=== PATIENT | female | born 1955 | race Caucasian/White ===

== ENCOUNTER 2016-06-07 12:46 | Observation (INO) | payer MEDICARE, OTHER ==
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
--- NOTE | ~2016-06-07 | CT16 ---
[facility] A Service of [facility] RADIOLOGY TEXT RESULTS PATIENT: DEANDRA BOB LOCATION: [facility] [address]-81 : [birth year] UNIT #: [id number] AGE: [address]: James Reese MD SEX: F ORDER DR: [id number] [facility] [address]. [place], [place] [address] [id number] I MR#: [id number] Acc #: [id number] NAME: DEANDRA BOB : 1955 SEX: F STUDY DATE/TIME: 06/07/2016 15:39 UNIT: [facility] ROOM: 83476 STUDY DESCRIPTION: CT Angio Chest for PE Attending Physician: James Reese M.D. Ordering Physician: Abraham Candelaria M.D. Primary Care Physician: Sulema Clark M.D. MEDICAL IMAGING REPORT This report is preliminary unless electronic signature is present EXAM CT chest with pulmonary embolus protocol INDICATION Chest pain beginning today. TECHNIQUE The patient was given 100 mL of Isovue-370 and spiral imaging was performed through the chest. 3D reconstructions of the pulmonary arteries were generated. This CT exam was performed with one or more of the following radiation dose reduction techniques: automatic exposure control, adjustment of mA and/or kV according to patient size, and iterative reconstruction. FINDINGS There is minimal right base atelectasis. Otherwise, the lungs are clear. There is adequate opacification of the pulmonary arteries and there is no CT evidence of pulmonary embolus. The aorta is normal in size. There is no dissection. The thyroid gland is normal. There is no mediastinal or hilar adenopathy. The visualized portions of the upper abdomen are normal. IMPRESSION 1. Mild right base atelectasis. 2. No CT evidence of pulmonary embolus or area of dissection. 3. Otherwise, normal. Dictated by... Sandip Jean M.D. THIS IS AN ELECTRONICALLY VERIFIED REPORT Sandip Jean M.D. at 06/08/2016 11:20 AM FEL/aa [facility] A Service of [facility] RADIOLOGY TEXT RESULTS PATIENT: DEANDRA BOB LOCATION: [facility] [id number] : [birth year] UNIT #: [id number] AGE: [address]: James Reese MD SEX: F ORDER DR: TD: 06/08/2016 09:48 JOB #: [id number] MEDICAL IMAGING REPORT COPY
--- NOTE | ~2016-06-07 | CT2 ---
[facility] A Service of [facility] RADIOLOGY TEXT RESULTS PATIENT: DEANDRA BOB LOCATION: [facility] 549-01 : [birth year] UNIT #: [id number] AGE: [address]: James Reese MD SEX: F ORDER DR: [id number] [facility] [address]. [place], [place] [address] [id number] I MR#: [id number] Acc #: [id number] NAME: DEANDRA BOB : 1955 SEX: F STUDY DATE/TIME: 06/07/2016 15:06 UNIT: [facility] ROOM: 10266 STUDY DESCRIPTION: CT Abd and Pelv W Cont Attending Physician: James Reese M.D. Ordering Physician: Abraham Candelaria M.D. Primary Care Physician: Sulema Clark M.D. MEDICAL IMAGING REPORT This report is preliminary unless electronic signature is present EXAM CT abdomen and pelvis with contrast INDICATION Chest pain beginning today with vomiting. PROCEDURE Contrast-enhanced CT of the abdomen and pelvis. 100 mL of Isovue-370. COMPARISON None TECHNIQUE This CT exam was performed with one or more of the following radiation dose reduction techniques: automatic exposure control, adjustment of mA and/or kV according to patient size, and iterative reconstruction. FINDINGS Refer to the separately dictated chest CT for thoracic findings. ABDOMEN WITH CONTRAST: The liver, pancreas, gallbladder and adrenal glands are unremarkable. Small nonobstructing calculus left kidney. Previous splenectomy. The bowel loops are nondilated. Extensive sigmoid diverticulosis. There is generalized thickening throughout the sigmoid colon. No definitive evidence for active inflammation. There is a fat-containing hernia just to the left of midline that measures 3.8 cm and has a neck of 1.8 cm. It is located in the mid abdomen. PELVIS WITH CONTRAST: No pelvic mass or fluid. No aggressive appearing bone lesion. There is 8.0 mm anterolisthesis of L4 on L5. IMPRESSION 1. No clearly acute finding in the abdomen or pelvis. [facility] A Service [facility] RADIOLOGY TEXT RESULTS PATIENT: DEANDRA BOB LOCATION: [facility] 549-01 : 55 UNIT #: [id number] AGE: [address]: James Reese MD SEX: F ORDER DR: 2. Fairly extensive left-sided colonic diverticulosis with mild generalized thickening in the sigmoid colon. It is favored to represent changes of chronic diverticulitis. It is difficult to exclude a mild acute component. Correlate with any current symptoms. 3. Fat-containing mid abdominal hernia as above. 4. Anterolisthesis of L4 on L5. Dictated by... Jem Garcia M.D. THIS IS AN ELECTRONICALLY VERIFIED REPORT Jem Garcia M.D. at 06/11/2016 7:10 AM Javi TD: 06/08/2016 09:06 JOB #: [id number] MEDICAL IMAGING REPORT COPY
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
--- NOTE | ~2016-06-07 | EKG ---
PATIENT: DEANDRA BOB UNIT #: [id number] Ventricular Rate: 68 BPM Atrial Rate: 68 BPM P-R Interval: 134 ms QRS Duration: 86 ms Q-T Interval: 404 ms QTC Calculation(Bezet): 429 ms P Letts: 47 degrees Calculated R Letts: -42 degrees Calculated T Letts: 25 degrees Diagnosis Line: Normal sinus rhythm with sinus arrhythmia Diagnosis Line: Left axis deviation Diagnosis Line: Otherwise normal ECG Diagnosis Line: No previous ECGs available Diagnosis Line: Confirmed by ILNDSEY CONNOLLY MD ([id number]) on 06/07/2016 Diagnosis Line: 4:47:25 PM INTERPRETING MD: MOHSEN JONES
--- NOTE | ~2016-06-07 | DS ---
Unit #: [id number] #: [id number] Patient: DEANDRA BOB [id number] [address] [place], [place] [address] [id number] I MR#: [id number] NAME: DEANDRA BOB ROOM: 549 Age: 60 Sex: F Admission Date: 06/07/2016 : 1955 Discharge Date: 06/09/2016 Attending Physician: James Reese M.D. Primary Care Physician: Sulema Clark M.D. DISCHARGE SUMMARY DIAGNOSES ON ADMISSION 1. Chest pain. 2. Left pleural effusion. DIAGNOSES ON DISCHARGE 1. Atypical chest pain, myocardial infarction ruled out. 2. Acute bronchitis. 3. Seizure disorder. 4. Gastroesophageal reflux disease. 5. Chronic obstructive pulmonary disease. 6. Fibromyalgia. CONSULTATIONS Dr. Jvaier in cardiac consultation. DIAGNOSTIC STUDIES LABS: The patient's BNP was 163. Troponin was less than 0.03. Blood cultures were negative. Urinalysis was also negative. IMAGING: CT scan of the chest did not reveal any evidence of PE or pneumonia. CT scan of the abdomen and pelvis revealed left-sided diverticulosis. It was difficult to exclude a mild acute component, but the patient is not having any symptoms of abdominal pain. HOSPITAL COURSE This 60-year-old female was admitted to the hospital with chest pain. Details are as per admission H and P. The patient was seen by Dr. Javier in consultation. Dr. Javier recommended that the patient can follow up on an outpatient basis with him for further workup. The patient had a stress echo done in August 2014, which was normal. Questionable pneumonia. The patient had a CT scan of the chest done, which did not reveal any evidence of pneumonia. There was some right atelectasis present. The patient was treated for acute bronchitis and is feeling much better. Today, the patient is comfortable and is not in any acute distress. Wants to go home. DISCHARGE MEDICATIONS 1. Albuterol MDI 2 puffs q.4 hours p.r.n. Unit #: [id number] #: [id number] Patient: DEANDRA BOB 2. Tylenol 650 mg p.o. q.4 hours p.r.n. pain. 3. Lyrica 300 mg p.o. b.i.d. 4. Lexapro 10 mg p.o. daily. 5. Bentyl 10 mg q.6 p.r.n. 6. BuSpar 15 mg q.i.d. 7. Lipitor 20 mg q.h.s. 8. The patient was advised to continue her home vitamins and medications. 9. Protonix 40 mg p.o. daily. 10. Enteric-coated aspirin 81 mg p.o. daily. 11. Doxycycline 100 mg p.o. b.i.d. for 5 days. 12. Vitamin D 50,000 units weekly, which is a home medicine. FOLLOW-UP 1. The patient is advised to follow up with primary care physician in 1 week and have a CBC and BMP done. 2. The patient is advised to call primary care physician or go to the ER if her condition changes. 3. The patient is advised to follow up with Dr. Javier as recommended. Dictated by... Noman Benitez TD: 06/09/2016 13:09 JOB #: [id number] DISCHARGE SUMMARY X James Reese MD DISCHARGE SUMMARY
--- NOTE | ~2016-06-07 | CR72 ---
[facility] A Service of [facility] RADIOLOGY TEXT RESULTS PATIENT: DEANDRA BOB LOCATION: [facility] : 55 UNIT #: [id number] AGE: [address]: Vance Oreilly MD SEX: F ORDER DR: [id number] [facility] [address] [place], [place] [address] [id number] MR#: [id number] Acc #: [id number] NAME: DEANDRA BOB : 1955 SEX: F STUDY DATE/TIME: 06/07/2016 12:17 UNIT: [facility] ROOM: STUDY DESCRIPTION: CR Chest Single View Portable Attending Physician: Vance Oreilly M.D. Ordering Physician: Abraham Candelaria M.D. Primary Care Physician: Sulema Clark M.D. MEDICAL IMAGING REPORT This report is preliminary unless electronic signature is present EXAM Portable chest radiograph INDICATION Chest pain that started this morning at 8:30 a.m. FINDINGS Cardiomegaly is identified. Patient appears to have some vascular congestion. There is a left pleural effusion and probably also a trace right pleural effusion as well. No pneumothorax is seen. There is bibasilar atelectasis and potentially also a left basilar infiltrate. Advanced degenerative changes are noted in the right shoulder. Dictated by... Marianne Talavera M.D. THIS IS AN ELECTRONICALLY VERIFIED REPORT Marianne Talavera M.D. at 06/07/2016 5:25 PM AFF/aa TD: 06/07/2016 15:45 JOB #: [id number] MEDICAL IMAGING REPORT COPY
[2016-06-07 12:42] LABS: POC - CKMB 1.1 ng/mL (0.0-7.9); POC - TROPONIN <0.05 ng/mL (<=0.05)
[~2016-06-07 12:46] MED LIST: ACETAMINOPHEN PO; ALBUTEROL17 GM INH; ATIVAN PO; B COMPLEX1 CA1 PO; CYMBALTA PO; EXCEDRIN GELTAB1 TA1 PO; KLONOPIN2 MG PO; MULTI-VIT/MIN P1 TAB PO; NEURONTIN300 MG PO; OMEPRAZOLE40 MG PO; PAXIL CR PO; PRENATAL1 TA1 PO; REGLAN PO; ST JOHNS WART PO; TRAZODONE PO; WELLBUTRIN XL PO
[2016-06-07 13:07] LABS: BASOPHIL# 0.1 X10e3 (0-0.3); BASOPHIL% 0.7 % (0-2.5); EOSINOPHIL% 0.3 % (0.0-7.0); HEMOGLOBIN 13.7 gm/dL (12.0-16.0); LYMPHOCYTE# 3.2 X10e3 (1.0-3.5); LYMPHOCYTE% 19.5 % (17.0-45.0); MEAN CELL VOLUME 92.2 FL (83-96); MEAN CORPUSCULAR HEMOGLOBIN 30.2 PG (28-34); MEAN CORPUSCULAR HGB CONC 32.7 g/dL (30-36); MEAN PLATELET VOLUME 8.6 FL (6.5-11.5); MONOCYTE# 0.5 X10e3 (0-1.0); MONOCYTE% 2.8 % (3.0-12.0); NEUTROPHIL# 12.7 X10e3 (1.5-7.1); NEUTROPHIL% 76.7 % (40-75); PLATELET COUNT 458 X10e3 (140-420); RED BLOOD COUNT 4.55 X10e (3.90-5.30); WHITE BLOOD COUNT 16.5 X10e3 (4.0-10.5)
[2016-06-07 13:08] LABS: DIFF IND YES
[2016-06-07 13:22] LABS: PROTHROMBIN TIME (PATIENT) 10.4 SECONDS (9.6-11.5)
[2016-06-07 13:30] LABS: ANISOCYTOSIS SL; PLATELET ESTIMATE INCREASED (NORMAL)
[2016-06-07 13:52] LABS: ALBUMIN SERUM 3.9 g/dL (3.5-5.0); ALKALINE PHOSPHATASE 105 U/L (32-92); ALT (SGPT) 20 U/L (10-40); AST (SGOT) 19 U/L (10-42); BILIRUBIN, DIRECT 0.1 mg/dL (0.0-0.2); BILIRUBIN,INDIRECT 0.4 mg/dL (0.0-0.9); BILIRUBIN,TOTAL 0.5 mg/dL (0.2-2.0); BLOOD UREA NITROGEN 12 mg/dL (9-23); CALCIUM SERUM 9.1 mg/dL (8.4-10.2); CARBON DIOXIDE 27 mmol/L (22-31); CHLORIDE 106 mmol/L (100-111); CREATININE SERUM 0.5 mg/dL (0.6-1.4); GLOM FILT RATE Estimated ABOVE60 mL/min (>60); GLUCOSE FASTING 113 mg/dL (70-110); POTASSIUM 3.8 mmol/L (3.5-5.1); SODIUM 142 mmol/L (135-145)
[2016-06-07 15:32] LABS: POC - CKMB 2.7 ng/mL (0.0-7.9); POC - TROPONIN <0.05 ng/mL (<=0.05)
[2016-06-07] MEDS ORDERED: LYRICA25 MG PO (18:54)
[2016-06-07] MEDS ORDERED: BUSPIRONE HCL10 MG PO (18:54)
[2016-06-07] MEDS ORDERED: PROTONIX20 MG PO (18:55)
[2016-06-07 19:32] LABS: CHOLESTEROL 186 mg/dL (0-200); HDL CHOLESTEROL 36 mg/dL (35-95); LDL/HDL RATIO 4 RATIO (0-4); TRIGLYCERIDES 54 mg/dL (10-160)
[2016-06-07 19:34] LABS: LDL CHOLESTEROL 139 mg/dL ([, -130])
[2016-06-07 20:39] LABS: URINE SOURCE CLEAN CATCH
[2016-06-07 20:46] LABS: URINE APPEARANCE CLEAR; URINE BILIRUBIN NEG (NEG); URINE BLOOD NEG (NEG); URINE COLOR YELLOW; URINE GLUCOSE NEG (NEG); URINE KETONE 1+ (NEG); URINE LEUKOCYTE ESTERASE NEG (NEG); URINE NITRATE NEG (NEG); URINE PH 6.5 (5-8); URINE PROTEIN NEG (NEG); URINE SPECIFIC GRAVITY 1.067 (1.003-1.035); URINE UROBILINOGEN 0.2 MG/DL (NEG)
[2016-06-07 20:50] LABS: CULTURE INDICATED? NO
[2016-06-07 23:27] LABS: CK TOTAL 45 IU/L (26-140)
[2016-06-08 04:19] LABS: BASOPHIL# 0.1 X10e3 (0-0.3); BASOPHIL% 0.8 % (0-2.5); EOSINOPHIL# 0.1 X10e3 (0-0.7); EOSINOPHIL% 0.5 % (0.0-7.0); HEMATOCRIT 38.4 % (35.0-45.0); HEMOGLOBIN 12.6 gm/dL (12.0-16.0); LYMPHOCYTE# 5.5 X10e3 (1.0-3.5); LYMPHOCYTE% 40.1 % (17.0-45.0); MEAN CELL VOLUME 92.1 FL (83-96); MEAN CORPUSCULAR HEMOGLOBIN 30.2 PG (28-34); MEAN CORPUSCULAR HGB CONC 32.7 g/dL (30-36); MEAN PLATELET VOLUME 7.4 FL (6.5-11.5); MONOCYTE% 7.3 % (3.0-12.0); NEUTROPHIL# 7.1 X10e3 (1.5-7.1); NEUTROPHIL% 51.3 % (40-75); PLATELET COUNT 402 X10e3 (140-420); RED BLOOD COUNT 4.17 X10e (3.90-5.30); WHITE BLOOD COUNT 13.8 X10e3 (4.0-10.5)
[2016-06-08 04:22] LABS: DIFF IND NO
[2016-06-08 04:41] LABS: ALBUMIN SERUM 3.2 g/dL (3.5-5.0); ALKALINE PHOSPHATASE 84 U/L (32-92); ALT (SGPT) 15 U/L (10-40); AST (SGOT) 16 U/L (10-42); BILIRUBIN,TOTAL 0.6 mg/dL (0.2-2.0); BLOOD UREA NITROGEN 13 mg/dL (9-23); BUN/CREATININE RATIO 18.57; CALCIUM SERUM 8.5 mg/dL (8.4-10.2); CARBON DIOXIDE 29 mmol/L (22-31); CHLORIDE 104 mmol/L (100-111); CREATININE SERUM 0.7 mg/dL (0.6-1.4); GLOM FILT RATE Estimated ABOVE60 mL/min (>60); GLUCOSE FASTING 94 mg/dL (70-110); POTASSIUM 3.4 mmol/L (3.5-5.1); PROTEIN TOTAL SERUM 6.6 g/dL (6.0-8.3); SODIUM 138 mmol/L (135-145)
[2016-06-08 04:53] LABS: CK TOTAL 35 IU/L (26-140)
[2016-06-08] MEDS ORDERED: MULTI-VITAMIN1 EAC1 PO (10:08)
[2016-06-08] MEDS ORDERED: EXCEDRIN MIGRAI1 TA2 PO (10:09)
[2016-06-08] MEDS ORDERED: ST. JOHN'S WOR150 M1 PO (10:11)
[2016-06-08] MEDS ORDERED: B COMPLEX1 TAB PO (10:12)
[2016-06-08] MEDS ORDERED: PROTONIX PO (10:14)
[2016-06-08] MEDS ORDERED: BUSPAR15 M1 PO (10:14)
[2016-06-08] MEDS ORDERED: LYRICA300 MG PO (10:14)
[2016-06-08] MEDS ORDERED: LEXAPRO PO (10:15)
[2016-06-08] MEDS ORDERED: AMITRIPTYLINE H50 MG PO (10:15)
[2016-06-08] MEDS ORDERED: BENTYL10 MG PO (10:15)
[2016-06-08] MEDS ORDERED: ALBUTEROL20 ml INH (10:55)
[2016-06-08] MEDS ORDERED: VITAMIN D50000 UNIT PO (10:56)
[2016-06-08 11:43] LABS: FREE T3 3.1 pg/mL (2.5-3.9)
[2016-06-08 11:44] LABS: FREE THYROXIN (T4) 1.09 ng/dL (0.58-1.64)
[2016-06-09 05:30] LABS: HEMATOCRIT 41.3 % (35.0-45.0); HEMOGLOBIN 13.3 gm/dL (12.0-16.0); MEAN CORPUSCULAR HGB CONC 32.2 g/dL (30-36); RED BLOOD COUNT 4.44 X10e (3.90-5.30)
[2016-06-09 06:47] LABS: BLOOD UREA NITROGEN 13 mg/dL (9-23); CALCIUM SERUM 9.1 mg/dL (8.4-10.2); CARBON DIOXIDE 28 mmol/L (22-31); CHLORIDE 104 mmol/L (100-111); CREATININE SERUM 0.5 mg/dL (0.6-1.4); GLOM FILT RATE Estimated ABOVE60 mL/min (>60); GLUCOSE FASTING 85 mg/dL (70-110); MAGNESIUM 1.9 mg/dL (1.6-3.0); POTASSIUM 4.3 mmol/L (3.5-5.1); SODIUM 139 mmol/L (135-145)
[2016-06-09] MEDS ORDERED: VIBRAMYCIN100 M1 PO (13:56)
== END 2016-06-09 14:30 | disposition home or self-care (01) ==
LOC: CED 12:46 → CEDOF 18:10 → C5B 06-08 19:46
PROVIDERS: Emergency Medicine; Family Medicine; Internal Medicine Cardiovascular Disease
DX: R07.89 Other chest pain (principal); J44.0 Chronic obstructive pulmonary disease with (acute) lower respiratory infection; J20.9 Acute bronchitis, unspecified; J44.1 Chronic obstructive pulmonary disease with (acute) exacerbation; J90 Pleural effusion, not elsewhere classified; G40.909 Epilepsy, unspecified, not intractable, without status epilepticus; K21.9 Gastro-esophageal reflux disease without esophagitis; M79.7 Fibromyalgia; E87.6 Hypokalemia; J98.11 Atelectasis; Z90.81 Acquired absence of spleen; F17.200 Nicotine dependence, unspecified, uncomplicated; Z80.49 Family history of malignant neoplasm of other genital organs; E78.5 Hyperlipidemia, unspecified; R94.6 Abnormal results of thyroid function studies; F41.8 Other specified anxiety disorders
CPT/HCPCS: 36415; 71010; 71275; 74177; 80048; 80053; 80061; 80076; 81003; 82550; 82553; 83690; 83735; 83880; 84439; 84443; 84481; 84484; 85025; 85027; 85610; 87040; 93005; 94640; 94760; 96374; 96375; 99285; G0378; J2270; J2405; J2550; Q9967

== ENCOUNTER 2016-08-09 13:06 | Emergency (ER) | payer MEDICARE, OTHER ==
--- NOTE | ~2016-08-09 | CR72 ---
[facility] A Service of [facility] RADIOLOGY TEXT RESULTS PATIENT: DEANDRA BOB LOCATION: SED : 55 UNIT #: [id number] AGE: [address]: Andrew Pederson MD SEX: F ORDER DR: [id number] [place] [id number] E MR#: [id number] Acc #: [id number] NAME: DEANDRA BOB : 1955 SEX: F STUDY DATE/TIME: UNIT: SED ROOM: STUDY DESCRIPTION: CR Chest Single View Portable Attending Physician: Andrew Pederson M.D. Referring Physician: Andrew Pederson M.D. Ordering Physician: Andrew Pederson M.D. Primary Care Physician: Sulema Clark M.D. MEDICAL IMAGING REPORT This report is preliminary unless electronic signature is present. EXAM Chest portable 08/09/2016 1331 hours HISTORY 60-year-old woman with chest pain and left-sided abdominal pain since 07/06/2016. Patient fell yesterday. COMPARISON Chest CT 06/07/2016 FINDINGS Portable upright chest demonstrates normal heart size and a mildly tortuous aorta. The upper lungs are clear. There is patchy density right greater than left lung base. Atelectasis is favored over pneumonia. Right basilar changes appear similar to CT 06/07/2016. IMPRESSION Patchy to linear right greater than left basilar densities likely atelectasis. The basilar findings are similar to the CT chest of 06/07/2016. No acute pulmonary or pleural findings. Dictated by... Chata Mercer M.D. THIS IS AN ELECTRONICALLY VERIFIED REPORT Chata Mercer M.D. at 08/09/2016 5:58 PM SMM/to TD: 08/09/2016 16:26 JOB #: [id number] MEDICAL IMAGING REPORT [facility] A Service of [facility] RADIOLOGY TEXT RESULTS PATIENT: DEANDRA BOB LOCATION: SED : 55 UNIT #: [id number] AGE: [address]: Andrew Pederson MD SEX: F ORDER DR: Page 1 of 1
--- NOTE | ~2016-08-09 | CT71 ---
[facility] A Service [facility] RADIOLOGY TEXT RESULTS PATIENT: DEANDRA BOB LOCATION: SED : 55 UNIT #: [id number] AGE: [address]: Andrew Pederson MD SEX: F ORDER DR: [id number] [place] [id number] E MR#: [id number] Acc #: [id number] NAME: DEANDRA BOB : 1955 SEX: F STUDY DATE/TIME: 08/09/2016 13:19 UNIT: SED ROOM: STUDY DESCRIPTION: CT Head Wo Contrast Attending Physician: Andrew Pederson M.D. Referring Physician: Andrew Pederson M.D. Ordering Physician: Andrew Pederson M.D. Primary Care Physician: Sulema Clark M.D. MEDICAL IMAGING REPORT This report is preliminary unless electronic signature is present. EXAM CT head 08/09/2016 HISTORY Left abdomen pain, chest pain since 07/06/2016, fell yesterday, involuntary leg movements. Dizziness. TECHNIQUE CT head performed skull base through vertex without intravenous contrast. This CT exam was performed with one or more of the following radiation dose reduction techniques: automatic exposure control, adjustment of mA and/or kV according to patient size, and iterative reconstruction. COMPARISON STUDIES No prior CTs of head for comparison. FINDINGS The brain stem is unremarkable. Cerebellum and cerebral hemispheres show normal jones matter-white matter differentiation. Some images degraded by motion artifact. No hemorrhage. No evidence of acute cortical ischemia. Midline structures are nondisplaced. The basal ganglia are intact. The ventricles, cisterns and sulci are normal in size and contour. No intra or extraaxial mass effect or abnormal intracranial fluid collection. There are cavernous carotid arterial calcifications. The intraorbital soft tissues are unremarkable. The appearance of left medial orbital wall suggests old healed left medial orbital wall fracture. No acute bony abnormality. No acute sinus disease. IMPRESSION 1. No acute abnormality seen in brain. If patient has ongoing neurologic symptoms, consider followup imaging. [facility] A Service [facility] RADIOLOGY TEXT RESULTS PATIENT: DEANDRA BOB LOCATION: [facility] : 55 UNIT #: [id number] AGE: [address]: Andrew Pederson MD SEX: F ORDER DR: 2. Cavernous carotid arterial calcifications. 3. No acute bony abnormality. Configuration of medial orbital wall left orbit suggests old healed left medial orbital wall fracture. Dictated by... Cyrus Ascencio M.D. THIS IS AN ELECTRONICALLY VERIFIED REPORT Cyrus Ascencio M.D. at 08/09/2016 6:48 PM Vish TD: 08/09/2016 16:23 JOB #: [id number] MEDICAL IMAGING REPORT Page 1 of 1
[2016-08-09 13:04] LABS: URINE SOURCE CLEAN CATCH
[~2016-08-09 13:06] MED LIST changes: +ALBUTEROL20 ml INH; +AMITRIPTYLINE H50 MG PO; +B COMPLEX1 TAB PO; +BENTYL10 MG PO; +BUSPAR15 M1 PO; +BUSPIRONE HCL10 MG PO; +EXCEDRIN MIGRAI1 TA2 PO; +LEXAPRO PO; +LYRICA25 MG PO; +LYRICA300 MG PO; +MULTI-VITAMIN1 EAC1 PO; +PROTONIX PO; +PROTONIX20 MG PO; +ST. JOHN'S WOR150 M1 PO; +VIBRAMYCIN100 M1 PO; +VITAMIN D50000 UNIT PO
[2016-08-09 13:09] LABS: URINE APPEARANCE CLEAR; URINE BILIRUBIN NEG (NEG); URINE BLOOD TRACE-INTACT (NEG); URINE COLOR YELLOW; URINE GLUCOSE NEG (NORM); URINE KETONE NEG (NEG); URINE LEUKOCYTE ESTERASE NEG (NEG); URINE NITRATE NEG (NEG); URINE PH 5.5 (5-8); URINE PROTEIN NEG (NEG); URINE UROBILINOGEN 0.2 MG/DL (NORM)
[2016-08-09 13:13] LABS: BASOPHIL# 0.1 X10e3 (0-0.3); BASOPHIL% 0.9 % (0-2.5); EOSINOPHIL# 0.1 X10e3 (0-0.7); EOSINOPHIL% 0.8 % (0.0-7.0); HEMATOCRIT 45.9 % (35.0-45.0); HEMOGLOBIN 15.3 gm/dL (12.0-16.0); LYMPHOCYTE# 4.7 X10e3 (1.0-3.5); LYMPHOCYTE% 30.5 % (17.0-45.0); MEAN CELL VOLUME 92.8 FL (83-96); MEAN CORPUSCULAR HEMOGLOBIN 30.8 PG (28-34); MEAN CORPUSCULAR HGB CONC 33.2 g/dL (30-36); MEAN PLATELET VOLUME 8.8 FL (6.5-11.5); MICRO INDICATED? YES; MONOCYTE# 1.5 X10e3 (0-1.0); NEUTROPHIL# 8.8 X10e3 (1.5-7.1); NEUTROPHIL% 57.8 % (40-75); PLATELET COUNT 296 X10e3 (140-420); RED BLOOD COUNT 4.95 X10e (3.90-5.30); RED CELL DISTRIBUTION WIDTH 15.1 % (11.0-15.5); WHITE BLOOD COUNT 15.3 X10e3 (4.0-10.5)
[2016-08-09 13:15] LABS: DIFF IND NO
[2016-08-09 13:16] LABS: CULTURE INDICATED? YES; URINE AMORPHOUS SEDIMENT AMORP URATES; URINE BACTERIA 1+ (NEG); URINE MUCUS PRESENT; URINE SQUAMOUS EPITHELIAL CELL FEW /[HPF]
[2016-08-09 13:29] LABS: ALBUMIN SERUM 4.4 g/dL (3.5-5.0); BILIRUBIN, DIRECT 0.2 mg/dL (0.0-0.2); BILIRUBIN,INDIRECT 0.5 mg/dL (0.0-0.9); BILIRUBIN,TOTAL 0.7 mg/dL (0.2-2.0); BUN/CREATININE RATIO 12.85; CALCIUM SERUM 9.3 mg/dL (8.4-10.2); CREATININE SERUM 0.7 mg/dL (0.6-1.4); GLOM FILT RATE Estimated 94.2 mL/min (>60); POTASSIUM 3.6 mmol/L (3.5-5.1); PROTEIN TOTAL SERUM 8.7 g/dL (6.0-8.3)
== END 2016-08-09 14:46 | disposition home or self-care (01) ==
LOC: SED 13:06
PROVIDERS: Emergency Medicine
DX: N39.0 Urinary tract infection, site not specified (principal); F41.9 Anxiety disorder, unspecified; J44.9 Chronic obstructive pulmonary disease, unspecified; F17.200 Nicotine dependence, unspecified, uncomplicated; Z98.890 Other specified postprocedural states; Z79.899 Other long term (current) drug therapy
CPT/HCPCS: 36415; 70450; 71010; 80048; 80076; 81003; 83690; 85025; 87086; 96374; 99284; J1885